=== PATIENT | female | born 2000 | race Caucasian/White ===

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

== ENCOUNTER 2020-02-05 13:45 | Emergency (ER) | payer SELFPAY | END 2020-02-05 13:55 | disposition left against medical advice (07) | LOC: ER 13:45 | DX: R05 Cough (principal); R50.9 Fever, unspecified; J02.9 Acute pharyngitis, unspecified; M79.10 Myalgia, unspecified site; Z53.21 Procedure and treatment not carried out due to patient leaving prior to being seen by health care provider | CPT/HCPCS: 99282 ==

== ENCOUNTER 2021-03-07 18:56 | Emergency (ER) | payer SELFPAY ==
[~2021-03-07] VITALS: Ht 162.6 cm; Wt 42.5 kg
[2021-03-07 19:10] VITALS: BP 109/68
[2021-03-07] MEDS ORDERED: IOHEXOL 240 MG/ML 50ML VIAL. ONE (20:13)
[2021-03-07] MEDS ORDERED: CONTRAST GIVEN. MC PRN (20:15)
[2021-03-07] MEDS ORDERED: IV NORMAL SALINE 1,000ML 1,000 ML IV ONE (20:15)
[2021-03-07] MEDS ORDERED: KETOROLAC 15 MG/ML VIAL. IVP ONE (20:15)
[2021-03-07] MEDS ORDERED: IOHEXOL 300 MG/ML 75 ML VIAL. IV ONE (20:15)
--- NOTE | 2021-03-07 20:22 | PHYS DOC ---
Past History Past Medical History: No Pertinent History Past Surgical History: No Surgical History Smoking: Cigarettes Alcohol Use: None Drug Use: Marijuana General Adult EDM: Chief Complaint: ABDOMINAL PAIN HPI: HPI: Patient is a 20 year old female who presents with abdominal pain. Pt reports no bowel movement in last 2 weeks. Similar episodes have occurred regularly since her pregancy 2 years ago. Pain worsens with straining and movement. Pt reports laxatives are not working. Pain is constant and 5/10. Review of Systems: Review of Systems: Constitutional: Denies fever, Endorses chills Eyes: Denies redness or eye pain HENT: Denies nasal congestion or sore throat Respiratory: Denies cough or shortness of breath Cardiovascular: Denies chest pain or palpitations GI: Denies nausea, or vomiting : Denies dysuria or hematuria Musculoskeletal: Denies back pain or joint pain Integument: Denies rash or skin lesions Neurologic: Denies headache, focal weakness or sensory changes Complete systems were reviewed and found to be within normal limits, except as documented in this note. Current Medications: Current Meds: Current Medications Medications (Trade) Dose Ordered Sig/Yaya Start Time Stop Time Status Last Admin Dose Admin Info (Do NOT chart on this entry -- for MONITORING) 1 each PRN DAILY PRN 03/07/21 20:15 03/09/21 20:14 Iohexol (Omnipaque 240 Mg/ml) 50 ml STK-MED ONCE 03/07/21 20:13 03/07/21 20:13 DC Iohexol (Omnipaque 300 Mg/ml) 75 ml 1X ONCE 03/07/21 20:15 03/07/21 20:16 DC Ketorolac Tromethamine (Toradol 15mg Vial) 15 mg 1X ONCE 03/07/21 20:15 03/07/21 20:16 DC Sodium Chloride 1,000 ml @ 1,000 mls/hr 1X ONCE 03/07/21 20:15 03/07/21 21:14 Allergies: Allergies: Allergies Coded Allergies Type Severity Reaction Last Updated Verified Penicillins Allergy Unknown 07/06/17 Yes latex Allergy Unknown 04/30/17 Yes Physical Exam: PE: Constitutional: Lethargic, HENT: Normocephalic, atraumatic Eyes: PERRL, EOMI, conjunctiva normal, no discharge Neck: Normal range of motion, no tenderness, supple Lungs & Thorax: No respiratory distress, equal chest rise and fall, clear to auscultation Cardiovascular: Regular rate and rhythm, no murmurs Abdomen: Soft, RLQ and suprapubic regions tender to palpation, BSx4 Skin: Warm, dry, no erythema, no rash Back: No tenderness, no CVA tenderness Extremities: No tenderness, ROM intact, no edema Neurologic: Alert and oriented X 3, normal motor function, normal sensory function, no focal deficits noted Psychologic: Affect normal, judgment normal Current Patient Data: Vital Signs: Vital Signs Date Time Temp Pulse Resp B/P (MAP) Pulse Ox O2 Delivery O2 Flow Rate FiO2 03/07/21 19:10 98.3 85 16 109/68 100 Room Air EKG: EKG: [] Radiology/Procedures: Radiology/Procedures: PROCEDURE: CT ABD PELV W/ORAL&IV CONTRAST Exam: CT of abdomen and pelvis with contrast INDICATION: Abdominal pain, constipation TECHNIQUE: Sequential axial images through the abdomen and pelvis obtained following the administration of 75 mL of Omni 300 IV contrast. Sagittal and coronal reformatted images were reconstructed from the axial data and reviewed. Exposure: One or more of the following in the visualized dose reduction techniques were utilized for this examination: 1. Automated exposure control 2. Adjustment of the MA and/or KV according to patient size 3. Use of iterative of reconstructive technique Comparisons: None FINDINGS: Heart size is normal. No. Visualized lung bases are clear. No pleural Liver, spleen, pancreas, gallbladder and adrenals are unremarkable. No perinephric inflammation or hydronephrosis. No renal or ureteral calculi are identified. Bladder is partially distended evaluated. Uterus is not enlarged. No abnormal adnexal mass. Visualized large amount stool noted throughout the colon. Appendix is normal. There is wall thickening noted at the distal ileum mild adjacent fat stranding. No free intra-abdominal air or fluid. No obstruction. Abdominal aorta has a normal course and caliber. Abdominal vasculature is patent. No enlarged intra-abdominal lymph nodes are identified. No suspicious osseous fractures. IMPRESSION: 1. Large amount stool noted throughout the colon consistent with history of constipation. 2. Mild wall thickening at the distal ileum a be infectious or inflammatory in etiology. Electronically signed by: Alla Espinosa MD (03/07/2021 10:07 PM) [facility] Heart Score: C/O Chest Pain: N/A Course & Med Decision Making: Course & Med Decision Making Pertinent Labs and Imaging studies reviewed. (See chart for details) Pt presents from abdominal pain. No bowel movement in [address] reveals colon full of stool, but no other findings. Advise stool softener and hydration. Patient stable for discharge with outpatient follow-up with PCP. Discussed findings and plan with patient, who acknowledges understanding and agreement. Dragon Disclaimer: Dragmark Disclaimer: This electronic medical record was generated, in whole or in part, using a voice recognition dictation system. Departure Departure: Impression: Primary Impression: Constipation Qualified Codes: K59.00 - Constipation, unspecified Additional Impression: Dehydration Disposition: HOME / SELF CARE / HOMELESS Condition: STABLE Referrals: PCP,CALVIN (PCP) Patient Instructions: Constipation, Adult, [id number], Dehydration, Adult, [id number] Additional Instructions: Increase fluid hydration. Take [id number] ibuprofen and/or Tylenol for pain or discomfort. You have elected to not provide a urine sample. As such we were unable to rule out a urinary tract infection. As such you are taking on the risks of not providing the sample. Scripts Magnesium Citrate (MAGNESIUM CITRATE) 296 Ml Solution 296 ML PO ONCE for Constipation, #296 ML Prov: JOBY NAJERA DO 03/07/21 Sennosides/Docusate Sodium (Colace 2-in-1 Tablet) 1 Each Tablet 1 TAB PO BID PRN for CONSTIPATION, #30 TAB 0 Refills Prov: JOBY NAJERA DO 03/07/21 JOBY NAJERA DO Mar 07, 2021 20:22
[2021-03-07 21:25] LABS: BASO % 1 % (0-3); EOS # 0.1 x10^3/uL (0.0-0.7); EOS % 1 % (0-3); HEMOGLOBIN 15.8 g/dL (12.0-15.5); LYMPH # 1.5 x10^3/uL (1.0-4.8); LYMPH % 21 % (24-48); MEAN CORPUSCULAR HEMOGLOBIN 27 pg (25-35); MEAN CORPUSCULAR HGB CONC 33 g/dL (31-37); MEAN CORPUSCULAR VOLUME 81 fL (79-100); MONO # 0.2 x10^3/uL (0.0-1.1); MONO % 3 % (0-9); NEUT # 5.3 x10^3uL (1.8-7.7); NEUT % 74 % (31-73); PLATELET COUNT 226 x10^3/uL (140-400); RED BLOOD COUNT 5.89 x10^6/uL (3.50-5.40); RED CELL DISTRIBUTION WIDTH 15.5 % (11.5-14.5); WHITE BLOOD COUNT 7.2 x10^3/uL (4.0-11.0)
[2021-03-07 21:36] LABS: CALCIUM 9.7 mg/dL (8.5-10.1); CREATININE 0.5 mg/dL (0.6-1.0); GFR 155.7; POTASSIUM 4.4 mmol/L (3.5-5.1)
[2021-03-07 21:42] LABS: ALBUMIN 3.9 g/dL (3.4-5.0); ALBUMIN/GLOBULIN RATIO 0.8 (1.0-1.7); MAGNESIUM 2.4 mg/dL (1.8-2.4); TOTAL BILIRUBIN 0.3 mg/dL (0.2-1.0)
--- NOTE | 2021-03-07 22:10 | RAD ---
Exam: CT of abdomen and pelvis with contrast INDICATION: Abdominal pain, constipation TECHNIQUE: Sequential axial images through the abdomen and pelvis obtained following the administrati on of 75 mL of Omni 300 IV contrast. Sagittal and coronal reformatted images were reconstructed from the axial data and reviewed. Exposure: One or more of the following in the visualized dose reduction techniques were utilized for this examination: 1. Automated exposure control 2. Adjustment of the MA and/or KV according to patient size 3. Use of iterative of reconstructive technique Comparisons: None FINDINGS: Heart size is normal. No. Visualized lung bases are clear. No pleural Liver, spleen, pancreas, gallbladder and adrenals are unremarkable. No perinephric inflammation or hydronephrosis. No renal or ureteral calculi are identified. Bladder is partially distended evaluated. Uterus is not enlarged. No abnormal adnexal mass. Visualized large amount stool noted throughout the colon. Appendix is normal. There is wall thickenin g noted at the distal ileum mild adjacent fat stranding. No free intra-abdominal air or fluid. No obs truction. Abdominal aorta has a normal course and caliber. Abdominal vasculature is patent. No enlarged intra-abdominal lymph nodes are identified. No suspicious osseous fractures. IMPRESSION: 1. Large amount stool noted throughout the colon consistent with history of constipation. 2. Mild wall thickening at the distal ileum a be infectious or inflammatory in etiology. Electronically signed by: Alla Espinosa MD (03/07/2021 10:07 PM) [facility]
[2021-03-07 22:12] LABS: BASO # 0.1 x10^3/uL (0.0-0.2)
[2021-03-07 22:14] LABS: PLT ESTIMATE ADEQUATE (ADEQUATE)
[2021-03-07] MEDS ORDERED: SENN-121 PO (23:53)
[2021-03-07] MEDS ORDERED: MAGN296S68 PO (23:53)
== END 2021-03-08 00:05 | disposition home or self-care (01) ==
LOC: ER 18:56
DX: K59.00 Constipation, unspecified (principal); E86.0 Dehydration; F17.210 Nicotine dependence, cigarettes, uncomplicated; Z88.0 Allergy status to penicillin; Z91.040 Latex allergy status
CPT/HCPCS: 36415; 74177; 80053; 83690; 83735; 85025; 96361; 96374; 99285; J1885; J7030; Q9967